=== PATIENT | male | born 1960 | race Caucasian/White ===

== ENCOUNTER 2020-12-26 00:40 | Day surgery (SDC) | payer BC, SELFPAY ==
[2020-12-13 11:15] VITALS: BMI 35.4
--- NOTE | 2020-12-25 12:10 | P.PNAN_ITS ---
Anes - Initial Pre Proc Eval Procedure: Operation Date: 12/26/20 08:00 Proposed Procedures p Screening Colonoscopy - Burke Zhang MD Date/Time: 12/25/20 12:10 Surgeon: Burke Zhang MD Pre Op Diagnosis: Neoplasm Screening Patient Data Age: 60 Gender: M Height: 1.75 m Weight: 109 kg Allergies Allergy/AdvReac Type Severity Reaction Status Date / Time NKDA Allergy Unknown Unknown Uncoded 12/26/20 06:55 Home Medications Medication Instructions Recorded Confirmed Type atorvastatin 40 mg PO DAILY 12/13/20 12/13/20 History diclofenac sodium 75 mg PO DAILY 12/13/20 12/13/20 History lisinopril 20 mg PO DAILY 12/13/20 12/13/20 History Patient hx anesthesia problems: none Family hx anesthesia problems: none [facility] Past Medical History Medical History (Updated 12/26/20 @ 07:02 by Burke Zhang MD) Hypertension Surgical History Surgical History (Updated 12/25/20 @ 12:11 by Eduar Jackman DO) History of total bilateral knee replacement Social History Social History Smoking status: Never smoker Alcohol intake: never Substance use: never Substance use type: does not use Living arrangements: with family Spiritual care concerns: No Anes - Eval Final PreProcedure Day of Procedure 12/25/20 12:10 Patient weight: obese Heart: regular rate and rhythm Lungs: clear to auscultation and normal air movement Airway: Mallampati scale class II Neurological: alert and oriented Last oral intake: >/= 8 hours ASA classification: III Emergent: no Anesthetic plan: proceed Anesthesia type and monitoring: general GIVS and standard monitoring Informed Consent: The patient's anesthetic plan and its attendant risks and benefits were discussed with the patient/family/POA. Questions were solicited and answers provided to the satisfaction of the patient/family/POA.
[2020-12-26 06:57] VITALS: BP 116/90; PULSE 88; RESP 18; TEMP 36.3; O2SAT 97
--- NOTE | 2020-12-26 07:01 | WPDGICN ---
Assessment and Plan Assessment and plan (1) Encounter for screening colonoscopy: Code(s): Z12.11 - Encounter for screening for malignant neoplasm of colon Status: Acute Assessment and Plan: Patient presents for screening colonoscopy today. Appears to be at average risk for colon polyps. Further recommendations will be given after endoscopy. GI Consult Note Consult date/time: 12/26/20 07:01 HPI: Keyur Presley is a 60 year old male Presents for screening colonoscopy. Patient reports his current weight appetite bowel movements are normal. He denies abdominal pain. He has had no bleeding. Family history is noncontributory. Screening colonoscopy will be performed today. Review of Systems Review of Systems: All systems reviewed & are unremarkable except as noted in HPI and below PMFSH Past Medical History Medical History (Updated 12/26/20 @ 07:02 by Burke Zhang MD) Hypertension Surgical History Surgical History (Updated 12/25/20 @ 12:11 by Eduar Jackman DO) History of total bilateral knee replacement Social History Social History Smoking status: Never smoker Alcohol intake: never Substance use: never Substance use type: does not use Living arrangements: with family Spiritual care concerns: No Meds Home Medications and Allergies Home Medications Medication Instructions Recorded Confirmed Type atorvastatin 40 mg PO DAILY 12/13/20 12/13/20 History diclofenac sodium 75 mg PO DAILY 12/13/20 12/13/20 History lisinopril 20 mg PO DAILY 12/13/20 12/13/20 History Allergies Allergy/AdvReac Type Severity Reaction Status Date / Time NKDA Allergy Unknown Unknown Uncoded 12/26/20 06:55 Vital Signs Vital Signs - 24 hr 12/26/20 06:57 Temperature 97.3 F L Pulse Rate 88 Respiratory Rate 18 Blood Pressure 116/90 Pulse Oximetry 97 Exam Narrative: Physical exam reveals patient to be alert. Vital signs stable. HEENT exam is unremarkable. Patient is anicteric. Lungs are clear to auscultation and percussion. Heart is without murmur or extra sounds. Abdominal exam bowel sounds are present soft nontender with no organomegaly.
[2020-12-26] MEDS: LACTATED RINGERS 1,000 ML 150 ML IV CONT (07:06)
[2020-12-26] MEDS: AMPICILLIN 2 GM/NS 100 ML 2 GM/100 ML BAG IVPB (07:07)
[2020-12-26 07:47] VITALS: BP 98/65; PULSE 50; RESP 18; O2SAT 98
[2020-12-26 07:57] VITALS: BP 93/62; PULSE 75; RESP 18; O2SAT 92
[2020-12-26 08:07] VITALS: BP 126/84; PULSE 72; RESP 21; O2SAT 98
--- NOTE | 2020-12-28 07:14 | SUR.OPER ---
12/26/20 transverse colon polyp specimen not retrieved, Dr. Zhang aware, no further orders obtained
== END 2020-12-26 08:21 | disposition home or self-care (01) ==
PROVIDERS: PCP Family Medicine Adolescent Medicine; Visit Provider Internal Medicine Gastroenterology
PROC: 0DJD8ZZ Inspection of Lower Intestinal Tract, Via Natural or Artificial Opening Endoscopic (ICD-10-PCS; CPT 45378; principal; 2020-12-26 08:00)
DX: Z12.11 Encounter for screening for malignant neoplasm of colon (principal); K63.5 Polyp of colon; K64.8 Other hemorrhoids; K57.30 Diverticulosis of large intestine without perforation or abscess without bleeding; I10 Essential (primary) hypertension; E66.9 Obesity, unspecified; Z68.36 Body mass index [BMI] 36.0-36.9, adult
CPT/HCPCS: 45385; 88305; J0290; J2704; J7120

== ENCOUNTER → 2021-12-27 11:02 | Outpatient (CLI) | payer BC, SELFPAY ==
--- NOTE | ~2021-12-27 | XR_ITS ---
EXAMINATION: XR chest 2V DATE: 12/27/2021 11:19 INDICATION: Chest pain after fall TECHNIQUE: Frontal and lateral views of the chest are obtained COMPARISON: 02/04/2019 FINDINGS: The lungs are free of acute opacities. No pleural effusion or pneumothorax. The cardiomedia stinal silhouette is normal. There is mild thoracic spondylosis. IMPRESSION: 1. No acute cardiopulmonary abnormality. Reviewed, dictated and finalized at location [facility].
== END ==
PROVIDERS: PCP Family Medicine Adolescent Medicine; Visit Provider Family Medicine Adolescent Medicine
DX: R07.81 Pleurodynia (principal); Z77.090 Contact with and (suspected) exposure to asbestos
CPT/HCPCS: 71046

== ENCOUNTER 2023-08-07 10:45 | Outpatient (CLI) | payer OTHER, SELFPAY ==
--- NOTE | ~2023-08-07 | CT_ITS ---
CT Scan of the Chest without Contrast: Clinical Indication: Chest pain Technique: Contiguous sections were acquired throughout the chest without intravenous contrast. Dose reduction technique was used on this scan by utilizing automated exposure control and iterative recon struction technique. The dose-length product (DLP) was 700.11 mGy-cm. Findings: There is no evidence of any significant mediastinal, hilar or axillary lymphadenopathy. Extensive cor onary artery calcifications are present. There is no evidence of pleural or pericardial effusion. Calcified pleural plaques are present. There is probable rounded atelectatic change in the medial left lung base. Lungs are otherwise clear. Images through the upper abdomen reveal small probable hyperdense left renal cyst. Impression: Probable rounded atelectatic change in the medial left lung base. Consider follow-up exam in 3 months to reassess. Calcified pleural plaques suggest prior asbestos exposure. Reviewed, dictated and finalized at [facility]. Impression: Probable rounded atelectatic change in the medial left lung base. Consider foll ow-up exam in 3 months to reassess. Calcified pleural plaques suggest prior asbestos exposure.
== END 2023-08-07 10:46 ==
LOC: MICIMG 10:45
PROVIDERS: PCP Family Medicine Adolescent Medicine; Visit Provider Family Medicine Adolescent Medicine
DX: R07.9 Chest pain, unspecified (principal); J92.9 Pleural plaque without asbestos
CPT/HCPCS: 71250